=== PATIENT | female | born 1955 | race Caucasian/White ===

== ENCOUNTER → 2017-04-04 | Outpatient (CLI) | payer MEDICAID ==
[~2017-04-04] MED LIST: CORTI10A RIGHT EAR; PERC7.5T13 PO; PRED-503 PO
[2017-04-04 12:23] LABS: AUTOMATED NEUTROPHIL # 7.1 TH/MM3 (1.8-7.7); BASOPHIL % 0.3 % (0.0-2.0); EOSINOPHIL # 0.3 TH/MM3 (0-0.4); EOSINOPHIL % 2.9 % (0.0-4.0); HEMOGLOBIN 12.1 GM/DL (11.6-15.3); LYMPH % 27.1 % (9.0-44.0); LYMPHOCYTE # 3.1 TH/MM3 (1.0-4.8); MEAN CELL VOLUME 85.5 FL (80.0-100.0); MEAN CORPUSCULAR HEMOGLOBIN 27.3 PG (27.0-34.0); MEAN CORPUSCULAR HGB CONC 31.9 % (32.0-36.0); MEAN PLATELET VOLUME 8.3 FL (7.0-11.0); MONO % 8.1 % (0.0-8.0); MONOCYTE # 0.9 TH/MM3 (0-0.9); NEUT % 61.6 % (16.0-70.0); PLATELET COUNT 459 TH/MM3 (150-450); RED BLOOD COUNT 4.44 MIL/MM3 (4.00-5.30); RED CELL DISTRIBUTION WIDTH 13.1 % (11.6-17.2); WHITE BLOOD COUNT 11.4 TH/MM3 (4.0-11.0)
--- NOTE | 2017-04-04 17:33 | EKG ---
Date Performed: 04/04/2017 Time Performed: 12:34:25 PTAGE: 61 years EKG: Sinus rhythm NORMAL ECG PREVIOUS TRACING : 11/24/1993 15.17 Compared to prior tracing no significant change DOCTOR: Emily Hernandez Interpretating Date/Time 04/04/2017 17:30:54
== END ==
LOC: PHPRE 11:36
PROVIDERS: ATTEND Orthopaedic Surgery
DX: Z01.812 Encounter for preprocedural laboratory examination (principal); Z01.810 Encounter for preprocedural cardiovascular examination; M75.42 Impingement syndrome of left shoulder
CPT/HCPCS: 85025; 93005

== ENCOUNTER → 2017-04-07 | Day surgery (SDC) | payer MEDICAID ==
[~2017-04-07] VITALS: Ht 156.2 cm; Wt 61.8 kg
[~2017-04-07] MED LIST changes: +BUPIVACAINE/EPINEPHRINE 0.5% PF 30 ML VIAL ONE; +CHLORHEXIDINE GLUCONATE 2 % 1 PACK (2 CLOTHS) TOPICAL PRN; +CHLORHEXIDINE GLUCONATE 4% SOLN 120 ML BTL TOPICAL SCH; +CLINDAMYCIN 900 MG/NS 100 ML IV SCH; +EPINEPHrine HCL PF/SF (1:1000) 1 MG/ML AMP I-OCULAR ONE; +GENTAMICIN SULFATE 80 MG/2 ML VIAL ONE; +LACTATED RINGER'S 1000 ML IV PRN; +LIDOCAINE 1%/EPINEPHrine 1:100,000 SOLN 30 ML VIAL ONE; +METOPROLOL TARTRATE 25 MG TAB PO PRN; +MIDAZOLAM HCL 5 MG/ML VIAL (1 ML) ONE; +POVIDONE IODINE 5% (ANTISEPSIS KIT) 4 APPLICATIONS EACH NARE PRN; +SODIUM CHLORID 0.9% 500 ML IV PRN; +VANCOMYCIN 1000 MG/NS 250 ML (for <70 kg) IV SCH
[2017-04-07 07:40] VITALS: PULSE 105
[2017-04-07 09:25] VITALS: PULSE 96; RESP 16; O2SAT 97
--- NOTE | 2017-04-07 09:57 | MP ---
cc: BENJAMÍN BONNER M.D. DATE OF OPERATION 04/07/[address] Benjamín Bonner PREOPERATIVE DIAGNOSIS Impingement syndrome left shoulder secondary to rheumatoid arthritis, possible rotator cuff tear. POSTOPERATIVE DIAGNOSES 1. Impingement syndrome left shoulder secondary to rheumatoid arthritis. 2. Partial tearing of the rotator cuff. PROCEDURE Anterior decompression with partial acromionectomy and coracoacromial ligament resection and repair of rotator cuff. DETAILS OF PROCEDURE The patient was placed on the operating table in the supine position and adequate general anesthesia was administered by Dr. Blas the anesthesiologist. The patient was then placed in a modified beach-chair position with all bony prominences and skin protected and a pad was placed under the left scapula. A time-out was called and the patient's name and procedure and location were fully confirmed. A 1-inch incision was made over the acromial process and taken down through the subcutaneous tissues after we infiltrated the area with several cc's of 0.25% Marcaine with epi. The subcutaneous tissue was resected down to the fascia which was incised and we then resected the anterior attachment of the deltoid muscle to the acromial process and the underlying coracoacromial ligament was identified and found to be tight and excised and we did evacuate a very copious amount of clear yellow fluid that was not intraarticular but rather was subacromial in the bursa. The acromionectomy was performed with a high-speed power bur. This allowed for complete visualization of the rotator cuff. At the supraspinatus insertion area there appeared to be a longitudinal partial tearing and this was repaired with interrupted suture in a [id number] fashion utilizing #2 FiberWire. The remaining area was debrided. The deltoid muscle was then reattached with interrupted sutures of #1 Ticron. The subcutaneous tissue was closed with a running simple 3-0 Vicryl. The skin edges were approximated with a running subcuticular 4-0 Vicryl. Steri-Strips were applied, followed by application of a small dressing. The patient was then immobilized in a sling and swath. Sponge count and needle count were reported correct x2. Instrument counts were also confirmed x2. The estimated blood loss was 10 cc. The patient tolerated the procedure well and was transferred to the recovery room in satisfactory condition. MD SMITHA Holguin/LAURE /9:07 AM /12:43 PM
[2017-04-07 10:55] VITALS: BP 170/78
== END | disposition home or self-care (01) ==
LOC: PHSDC 06:10
PROVIDERS: ATTEND Orthopaedic Surgery
DX: M75.42 Impingement syndrome of left shoulder (principal); M06.9 Rheumatoid arthritis, unspecified; M75.112 Incomplete rotator cuff tear or rupture of left shoulder, not specified as traumatic
CPT/HCPCS: 01610; 23412; 64415; J2250; J3370; J7050; J7120; J0171; J1580